=== PATIENT | male | born 1965 | race African-American/Black ===

== ENCOUNTER 2024-04-30 16:12 | Emergency (ER) | payer MEDICAID, SELFPAY ==
[2024-04-30 16:27] VITALS: BP 157/94; PULSE 69; RESP 14; TEMP 36.1; O2SAT 99; BMI 28.5
--- NOTE | 2024-04-30 16:38 | CRLHL7_ITS ---
For Patients: As a result of the Century Cures Act, medical imaging exams and procedure reports are released immediately into your electronic medical record. You may view this report before your referring provider. If you have questions, please contact your health care provider. INDICATION: Left lower extremity swelling, history right lower extremity DVT. TECHNIQUE: Ultrasound venous duplex lower left extremity. Compression venous exam was performed using mensah-scale, color Doppler, and spectral Doppler analysis. COMPARISON: None. FINDINGS: Deep veins: Sonographic imaging demonstrates the left common femoral, deep femoral, superficial femoral, and the contralateral right common femoral veins to be fully compressible with normal color Doppler blood flow. Intravascular thrombus with associated noncompression and absence of color flow is seen within the left popliteal, posterior tibial, and peroneal veins and appears to be completely occlusive in some regions. Superficial veins: Greater saphenous vein is fully compressible. IMPRESSION: DVT involving the left popliteal, posterior tibial, and peroneal veins that appears completely occlusive in some regions. Dictated by Steven Desai MD @ 04/30/2024 7:26:28 PM (Electronically Signed)
--- NOTE | 2024-04-30 17:15 | ED_ITS ---
HPI - General Adult General Chief complaint: Lower Extremity Swelling Stated complaint: L foot swelling, concerned about blood clot Time Seen by Provider: 04/30/24 16:24 History of Present Illness HPI narrative: This 58-year-old male comes in reporting pain and swelling in his left lower extremity. He comes in with some concern about a blood clot. He states that he has a history of a previous deep venous thrombosis. He does not report any chest pain or shortness of breath. He arrives here with normal vital signs. He does not report any recent injury or strenuous activity. Related Data Previous Rx's ?Medication ?Instructions ?Recorded rivaroxaban 15 mg (42)-20 mg (9) See Rx Instructions PO .COMPLEX 04/30/24 tablets in a starter pack (Xarelto #51 ea DVT-PE Treatment 30-Day Starter) Allergies Allergy/AdvReac Type Severity Reaction Status Date / Time No Known Drug Allergies Allergy Verified 04/30/24 16:27 Review of Systems Status of ROS: Reports: 10 or more systems reviewed and unremarkable except as noted in History and below Narrative: Constitutional: No fevers, no weight gain or loss. Eyes: No discharge. No vision changes. HENT: No congestion, no sore throat, no ear pain. Cardiovascular: No chest pain, no palpitations. Respiratory: No shortness of breath, no wheezes, no cough. Gastrointestinal: No abdominal pain, no vomiting, no diarrhea. Genitourinary: No dysuria, no hematuria. Musculoskeletal: Normal range of motion. Skin: No rashes, no pruritis. Neurological: No dizziness, weakness, sensory change, speech change. Endo/Heme/Allergies: No bruising or bleeding. No polydipsia. Pysch: no suicidality, no anxiety, no insomnia. All other systems reviewed and are negative. Exam Narrative: Exam Narrative: Constitutional: Well-developed, well-nourished, no acute distress. HEENT: Normocephalic, atraumatic. Neck: Normal range of motion. Nontender. Supple. Heart: Regular. No murmurs. Normal rate. Intact distal pulses. Lungs: Clear to auscultation. No chest discomfort. No wheezes, rhonchi, or rales. Abdomen: Normal bowel sounds. Nontender. No rebound tenderness. Genitalia: Deferred. Back: No midline tenderness. Normal range of motion. Extremities: Normal range of motion. No injury. Left leg in the calf region has diffuse pain and the left leg has some swelling when compared to the right. There is mild pitting edema at the ankle. Skin: Intact. No rash. Warm. No erythema or pallor. Neurologic: No altered sensation. No weakness. Alert and oriented. Psychiatric: No suicidality. No anxiety or depression. No insomnia. Nursing notes and vitals signs are reviewed. Const: Vital Signs, click to edit/add: Vital Signs - 24 hr 04/30/24 16:27 Temperature 96.9 F L Pulse Rate [Pulse Oximeter] 69 Respiratory Rate 14 Blood Pressure [Ri t Upper Arm] 157/94 H Pulse Oximetry 99 Oxygen Delivery Me thod Room Air Course Vital Signs Vital signs: Initial Vital Signs Temperature 96.9 F L 04/30/24 16:27 Temperature Source Temporal Artery Scan 04/30/24 16:27 Pulse Rate 69 04/30/24 16:27 Pulse Rhythm Regular 04/30/24 16:27 Respiratory Rate 14 04/30/24 16:27 Blood Pressure 157/94 H 04/30/24 16:27 Blood Pressure Mean 115 H 04/30/24 16:27 Blood Pressure Position Sitting 04/30/24 16:27 Pulse Oximetry 99 04/30/24 16:27 Oxygen Delivery Method Room Air 04/30/24 16:27 Vital Signs Temperature 96.9 F L 04/30/24 16:27 Pulse Rate 69 04/30/24 16:27 Respiratory Rate 14 04/30/24 16:27 Blood Pressure 157/94 H 04/30/24 16:27 Pulse Oximetry 99 04/30/24 16:27 Oxygen Delivery Method Room Air 04/30/24 16:27 Temperature 96.9 F L 04/30/24 16:27 Pulse Rate 69 04/30/24 16:27 Respiratory Rate 14 04/30/24 16:27 Blood Pressure 157/94 H 04/30/24 16:27 Pulse Oximetry 99 04/30/24 16:27 Oxygen Delivery Method Room Air 04/30/24 16:27 Medical Decision Making MDM Narrative Medical decision making narrative: This patient comes in with pain and swelling in his left lower extremity. He does have a history of a blood clot in the other leg that occurred about 2 years ago and is no longer taking anticoagulant medications. He does not describe any recent injury event but states that he has been studying for a test and sitting for extended periods of time. An ultrasound is obtained of his left lower extremity today and does show evidence of deep venous thrombus. The patient is not having any signs or symptoms of pulmonary embolism. His heart rate and oximetry are in normal range. He does not report any chest pain or hemoptysis. He states that he was on Xarelto in the past and this worked well for him. He did receive an oral dose of 15 mg and prescription for the same medicine going forward. Discharge Plan Discharge Clinical Impression: Deep venous thrombosis Additional Instructions: Take medication as prescribed. Follow up with primary physician for ongoing management. Prescriptions: New Xarelto DVT-PE Treat 30d Start 15 mg (42)- 20 mg (9) tablets,dose pack See Rx Instructions .ROUTE .COMPLEX Qty: 51 0RF Rx Instructions: take one-15 mg tablet twice daily for 21 days, then one-20 mg tablet once daily; must take with meal/food Follow Up/Referrals: Nicholas Bridges MD [Primary Care Provider] - Stand Alone Forms: [facility] Info Instructions
[2024-04-30 19:37] VITALS: BP 157/94; PULSE 69; RESP 14; TEMP 36.1
[2024-04-30] MEDS: RIVAROXABAN 10 MG TABLET 15 MG PO (19:42)
== END 2024-04-30 19:46 | disposition home or self-care (01) ==
PROVIDERS: Emergency Provider Emergency Medicine Emergency Medical Services; PCP Family Medicine
DX: I82.502 Chronic embolism and thrombosis of unspecified deep veins of left lower extremity (principal)
CPT/HCPCS: 93971; 99283; 99284; A9270

== ENCOUNTER 2024-06-29 18:54 | Outpatient (CLI) | payer MEDICAID, SELFPAY | END 2024-06-29 18:55 | disposition home or self-care (01) | LOC: AMB 07-10 03:25 | PROVIDERS: PCP Family Medicine; Visit Provider Emergency Medicine Emergency Medical Services | DX: R51.9 Headache, unspecified (principal); R53.83 Other fatigue | CPT/HCPCS: A0425; A0427 ==

== ENCOUNTER 2024-06-29 19:25 | Emergency (ER) | payer MEDICAID, SELFPAY ==
[2024-06-29 19:29] VITALS: BP 149/88; PULSE 89; RESP 16; TEMP 37.6; O2SAT 98; BMI 28.5
--- NOTE | 2024-06-29 20:34 | ED_ITS ---
HPI - General Adult General Chief complaint: Cough Stated complaint: weakness, dizziness Time Seen by Provider: 06/29/24 20:23 History of Present Illness HPI narrative: This 58-year-old male comes in reporting upper respiratory symptoms that began yesterday. He reports headache, sore throat, cough, nasal congestion, and nausea. He came in by ambulance who established an IV and gave Zofran and IV fluids. He states that his nausea is feeling much better now. Related Data Previous Rx's ?Medication ?Instructions ?Recorded rivaroxaban 15 mg (42)-20 mg (9) See Rx Instructions PO .COMPLEX 04/30/24 tablets in a starter pack (Xarelto #51 ea DVT-PE Treatment 30-Day Starter) oseltamivir 75 mg capsule (Tamiflu) 75 mg PO BID 5 days #10 caps 06/29/24 Allergies Allergy/AdvReac Type Severity Reaction Status Date / Time No Known Drug Allergies Allergy Verified 04/30/24 16:27 Review of Systems Status of ROS: Reports: 10 or more systems reviewed and unremarkable except as noted in History and below Narrative: Constitutional: No fevers, no weight gain or loss. Eyes: No discharge. No vision changes. HENT: Nasal congestion and sore throat. Cardiovascular: No chest pain, no palpitations. Respiratory: No shortness of breath, no wheezes. He reports a cough. Gastrointestinal: No abdominal pain, no vomiting, no diarrhea. He reports nausea. Genitourinary: No dysuria, no hematuria. Musculoskeletal: Normal range of motion. Skin: No rashes, no pruritis. Neurological: No dizziness, weakness, sensory change, speech change. Endo/Heme/Allergies: No bruising or bleeding. No polydipsia. Pysch: no suicidality, no anxiety, no insomnia. All other systems reviewed and are negative. Exam Narrative: Exam Narrative: Constitutional: Well-developed, well-nourished, no acute distress. HEENT: Normocephalic, atraumatic. Neck: Normal range of motion. Nontender. Supple. Heart: Regular. No murmurs. Normal rate. Intact distal pulses. Lungs: Clear to auscultation. No chest discomfort. No wheezes, rhonchi, or rales. Abdomen: Normal bowel sounds. Nontender. No rebound tenderness. Genitalia: Deferred. Back: No midline tenderness. Normal range of motion. Extremities: Normal range of motion. No injury. Skin: Intact. No rash. Warm. No erythema or pallor. Neurologic: No altered sensation. No weakness. Alert and oriented. Psychiatric: No suicidality. No anxiety or depression. No insomnia. Nursing notes and vitals signs are reviewed. Const: Vital Signs, click to edit/add: Vital Signs - 24 hr 06/29/24 19:29 Temperature 99.7 F H Pulse Rate [Pulse Oximeter] 89 Respiratory Rate 16 Blood Pressure [Ri ght Upper Arm] 149/88 H Pulse Oximetry 98 Oxygen Delivery Me thod Room Air Course Vital Signs Vital signs: Initial Vital Signs Temperature 99.7 F H 06/29/24 19:29 Temperature Source Temporal Artery Scan 06/29/24 19:29 Pulse Rate 89 06/29/24 19:29 Respiratory Rate 16 06/29/24 19:29 Respiratory Effort Normal 06/29/24 19:29 Respiratory Depth Normal 06/29/24 19:29 Respiratory Pattern Normal 06/29/24 19:29 Blood Pressure 149/88 H 06/29/24 19:29 Blood Pressure Mean 108 H 06/29/24 19:29 Blood Pressure Position Sitting 06/29/24 19:29 Pulse Oximetry 98 06/29/24 19:29 Oxygen Delivery Method Room Air 06/29/24 19:29 Vital Signs Temperature 99.7 F H 06/29/24 19:29 Pulse Rate 89 06/29/24 19:29 Respiratory Rate 16 06/29/24 19:29 Blood Pressure 149/88 H 06/29/24 19:29 Pulse Oximetry 98 06/29/24 19:29 Oxygen Delivery Method Room Air 06/29/24 19:29 Temperature 99.7 F H 06/29/24 19:29 Pulse Rate 89 06/29/24 19:29 Respiratory Rate 16 06/29/24 19:29 Blood Pressure 149/88 H 06/29/24 19:29 Pulse Oximetry 98 06/29/24 19:29 Oxygen Delivery Method Room Air 06/29/24 19:29 Medications Administered Medications: Discontinued Medications Generic Name Dose Route Start Last Admin Trade Name Freq PRN Reason Stop Dose Admin Dexamethasone 10 mg 06/29/24 20:32 06/29/24 20:44 Dexamethasone 4 Mg/Ml Vial IV 06/29/24 20:33 10 mg ONCE ONE Administration Ketorolac Tromethamine 30 mg 06/29/24 20:32 06/29/24 20:44 Ketorolac 30 Mg/Ml Inj IVP 06/29/24 20:33 30 mg ONCE ONE Administration Medical Decision Making MDM Narrative Medical decision making narrative: This patient comes in with upper respiratory symptoms as described above. Nasal pharyngeal swab returns positive for influenza A. His symptoms began yesterday so he is a candidate for Tamiflu. I did provide this prescription for him. He also received IV doses of Toradol and dexamethasone. The patient is to be taking Xarelto because of previous pulmonary embolism but states that he has not been taking it because it is too expensive. So I did feel okay about giving him a dose of Toradol. Lab Data Labs: Lab Results 06/29/24 Range/Units 20:33 SARS-CoV-2 (PCR) Negative SARS-CoV-2 (Negative) Influenza Type A (PCR) POSITIVE PCR FLU A A (Negative) Influenza Type B (PCR) Negative PCR FLU B (Negative) RSV (PCR) Negative PCR RSV (Negative) Discharge Plan Discharge Clinical Impression: Influenza A Patient Disposition: Home, Self-Care Condition: Stable Additional Instructions: Take medication as prescribed. Use [id number] medicines also as needed and directed. Follow up with MD return if worsening. Prescriptions: New oseltamivir [Tamiflu] 75 mg capsule 75 mg PO BID 5 Days Qty: 10 0RF No Action Xarelto DVT-PE Treat 30d Start 15 mg (42)- 20 mg (9) tablets,dose pack See Rx Instructions .ROUTE .COMPLEX Qty: 51 0RF Rx Instructions: take one-15 mg tablet twice daily for 21 days, then one-20 mg tablet once daily; must take with meal/food Follow Up/Referrals: Nicholas Bridges MD [Primary Care Provider] - Stand Alone Forms: [employer] Info Instructions
[2024-06-29] MEDS: KETOROLAC 30 MG/ML inj IVP (20:44)
[2024-06-29] MEDS: dexAMETHasone 4 MG/ML VIAL 10 MG IV (20:44)
[2024-06-29 21:13] LABS: PCR FLU A POSITIVE PCR FLU A (Negative); PCR FLU B Negative PCR FLU B (Negative); PCR RSV Negative PCR RSV (Negative); SARS PCR* Negative SARS-CoV-2 (Negative)
--- OUTSIDE RECORDS SUMMARY | 2024-06-30 00:14 | XMS_ITS | Clinical Summary ---
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 Immunizations Name Administration Dates Next Due DTP 04/10/2010 Hepatitis B (Adult) 06/10/2005 Influenza, IIV3 (Age >=3 years) 03/19/2011 Influenza, IIV4 05/29/2016 Social History Tobacco Use Types Packs/Day Years Used Date Smoking Tobacco: Never Smokeless Tobacco: Never Alcohol Use Standard Drinks/Week Comments No 0 (1 standard drink = 0.6 oz pur e alcohol) Sex and Gender Information Value Date Recorded Sex Assigned at Not on file Legal Sex Male 6:27 AM FILTER PRESS TENDER Gender Identity Not on file Sexual Orientation Not on file 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 Not on file Not on mariela e Obstetrics History Last Filed Vital Signs Vital Sign Reading Time Taken Comments Blood Pressure 128/84 08/08/2011 7:25 PM FILTER PRESS TENDER Pulse 85 08/08/2011 7:25 PM FILTER PRESS TENDER Temperature 36.6 C (97.9 F) 07/11/2011 12:12 PM FILTER PRESS TENDER Respiratory Rate 18 01/12/2011 6:29 PM CDT Oxygen Saturation 98% 01/12/2011 6:29 PM CDT Inhaled Oxygen Concentration - - Weight 89.8 kg (198 lb) 08/08/2011 7:25 PM FILTER PRESS TENDER Height 182.9 cm (6') 07/11/2011 12:12 PM FILTER PRESS TENDER Body Mass Index 26.85 07/11/2011 12:12 PM FILTER PRESS TENDER Plan of Treatment Health Maintenance Due Date Last Done Comments Tdap 11/16/1978 Depression screening for age 12+ 1979 BMI (ht and wt on same day) for age 18+ 11/16/1985 Tetanus booster 1987 Colonoscopy through age 75 11/16/2012 Lipids for age 45-75 04/19/2016 04/19/2011 Pneumococcal series for age 50+ (1 of 1 - PCV) 11/16/2017 Zoster (shingles) series for age 50+ (1 of 2) 11/16/2017 COVID-19 vaccine series ( - 2023- season) 2024 Influenza for age 50-64 02/09/2024 05/29/20 16, 03/19/2011 HIV for age 15-65 Completed 06/07/2011 Hepatitis C screening for ag e 18-79 Completed 06/07/2011 Pneumococcal series for age 6-49 Aged Out No longer eligible b ased on patient's age to complete this topic Procedures Procedure Name Priority Date/Time Associated Diagnosis Comments ANTI HIV 1/2 Routine 06/07/2011 6:55 PM FILTER PRESS TENDER Screen for STD (sexually transmitted disease) ANTI HCV Routine 06/07/2011 6:55 PM FILTER PRESS TENDER Screen for STD (sexually transmitted disease) LIPID PANEL W REFLEX MEASURED LDL Routine 04/19/2011 10:17 AM FILTER PRESS TENDER Routine general medical examination at a health care facility from Last 3 Months or Most Recently Relevant to Health Maintenance Results * ANTI HCV (06/07/2011 6:55 PM FILTER PRESS TENDER) ANTI HCV Non-reacti ve [facility] Blood specimen (specimen) BLOOD SPECIMEN / Unknown 06/07/2011 6:55 PM FILTER PRESS TENDER 06/07/2011 6:44 PM FILTER PRESS TENDER us Jonny Howell MD SEND OUTS Final Result [facility] [place] ZIP [id number] [address] * ANTI HIV 1/2 (06/07/2011 6:55 PM FILTER PRESS TENDER) ANTI HIV 1/2 Non-reacti ve [facility] Blood specimen (specimen) BLOOD SPECIMEN / Unknown 06/07/2011 6:55 PM FILTER PRESS TENDER 06/07/2011 6:44 PM FILTER PRESS TENDER us Jonny Howell MD SEND OUTS Final Result [facility] INTERNAL ZIP [id number] [place] [id number] * (ABNORMAL) LIPID PANEL W REFLEX MEASURED LDL (04/19/2011 10:17 AM FILTER PRESS TENDER) CHOLESTEROL,TOTAL 178 110 - 199 mg/dL [facility] TRIGLYCERIDES 95 <150 mg/dL [facility] HDL CHOLESTEROL 29(L) >40 mg/dL [facility] CHOL/HDL RATIO 6.14(H) <4.51 [facility] LDL CHOLESTEROL 130 <131 mg/dL [facility] PATIENT STATUS Fasting [facility] Blood specimen (specimen) BLOOD SPECIMEN / Unknown 04/19/2011 10:17 AM FILTER PRESS TENDER 04/19/2011 10:12 AM FILTER PRESS TENDER us Donato Joyner MD CHEMISTRY Final Re sult [facility] [address] [place], [place] [id number] from Last 3 Months or Most Recently Relevant to Health Maintenance Insurance [employer] Care Teams Furnace Charger Relationship Specialty Start Date End Date Votel, Donato Saunders MD [address] [place] [address] PCP - General Family Practice 07/26/11
--- OUTSIDE RECORDS SUMMARY | 2024-06-30 00:14 | XMS_ITS | Clinical Summary ---
Author Organization [facility] Address [address] [place] [id number] Care Team Providers Care Dermatology Teacher Name Role Phone No Ref-Primary, Physician Primary Care Provider Allergies No known active allergies Medications ATIVAN 1 MG OR TABSIndications: Acute stress reaction ONE tablet if needed before court date- twice daily as needed 20 0 12/10/2007 Active TERBINAFINE HCL 250 MG OR TABSIndications: Tinea corporis 1 TABLET DAILY 7 0 04/29/2008 Active EFFEXOR 75 MG OR TABSIndications: Depression ONE DAILY 3 MONTHS 1 YEAR 04/29/2008 Active TOBRAMYCIN SULFATE 0.3 % OP SOLNIndications: Conjunctivitis, acute,Stye 2-4 drops in the right eye twice daily for 7 days 1 0 05/10/2008 Active NO ACTIVE MEDICATIONS . 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 Gender Identity Not on file Sexual Orientation Not on file Last Filed Vital Signs Vital Sign Reading Time Taken Comments Blood Pressure 128/84 02/16/2009 10:56 AM CDT Pulse 63 02/16/2009 10:56 AM CDT Temperature - - Respiratory Rate - - Oxygen Saturation 99% 02/16/2009 10: 56 AM CDT Inhaled Oxygen Concentration - - Weight 87.5 kg (192 lb 14.4 oz) 009 10:56 AM CDT Height 182.9 cm (6') 02/16/2009 10:56 AM CDT Body Mass Index 26.16 02/16/2009 10:56 AM CDT Plan of Treatment Not on file Care Teams Dermatology Teacher Relationship Specialty Start Date End Date No Ref-Primary, Physician PCP - General 12/06/17
--- OUTSIDE RECORDS SUMMARY | 2024-06-30 00:14 | XMS_ITS | Referral Summary ---
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
--- OUTSIDE RECORDS SUMMARY | 2024-06-30 00:14 | XMS_ITS | Continuity of Care Document ---
Author Name [facility] User [facility] Address Unknown Organization Unknown Address Unknown Encounters FILTER APPLIED:Only known Encounters with Admission Date within the last 5 years Encounter Location Admission Discharge Billing Code Strategic Analyst Ander rodriguez [facility]
--- OUTSIDE RECORDS SUMMARY | 2024-06-30 00:21 | XMS_ITS | Continuity of Care Document ---
Author Name [facility] User [facility] Address Unknown Organization Unknown Address Unknown Encounters FILTER APPLIED:Only known Encounters with Admission Date within the last 5 years Encounter Location Admission Discharge Billing Code Reliability Technician Ander ro[facility]igue[facility]
== END 2024-06-29 21:29 | disposition home or self-care (01) ==
PROVIDERS: Emergency Provider Emergency Medicine Emergency Medical Services; PCP Family Medicine
DX: J10.1 Influenza due to other identified influenza virus with other respiratory manifestations (principal)
CPT/HCPCS: 87631; 96374; 96375; 99284; J1100; J1885